=== PATIENT | female | born 1955 | race Caucasian/White ===

== ENCOUNTER 2017-12-06 07:59 | Day surgery (SDC) | payer BC, MEDICARE ==
[~2017-12-06] VITALS: Ht 160 cm; Wt 99.7 kg
[2017-12-06] VITALS (10 sets, daily range): BP systolic 110–135; BP diastolic 56–72
[2017-12-06] MEDS ORDERED: LIDOcaine 1% (10mg/ml) 2ml vial SQ ONE (08:20)
[2017-12-06] MEDS ORDERED: normal saline 1000ml 1,000 ML IV PRN (08:25)
[2017-12-06] MEDS ORDERED: albumin (human) 25% 100 ML IV solution IV PRN (08:25)
[2017-12-06] MEDS ORDERED: SIMV20TA5 PO (11:08)
[2017-12-06] MEDS ORDERED: CALC500T11 PO (11:08)
[2017-12-06] MEDS ORDERED: FURO-149 PO (11:08)
[2017-12-06] MEDS ORDERED: SPIR25TA3 PO (11:08)
[2017-12-06] MEDS ORDERED: LISI40TA4 PO (11:08)
[2017-12-06] MEDS ORDERED: ESCI5TAB PO (11:08)
[2017-12-06] MEDS ORDERED: VITA400C65 PO (11:08)
== END 2017-12-06 11:40 | disposition home or self-care (01) ==
LOC: SSTAY O 07:59
PROVIDERS: ATTEND Radiology Vascular & Interventional Radiology
DX: K70.31 Alcoholic cirrhosis of liver with ascites (principal); E03.9 Hypothyroidism, unspecified; E11.9 Type 2 diabetes mellitus without complications; E78.5 Hyperlipidemia, unspecified; F41.9 Anxiety disorder, unspecified; I10 Essential (primary) hypertension; G47.33 Obstructive sleep apnea (adult) (pediatric); F17.210 Nicotine dependence, cigarettes, uncomplicated; J43.9 Emphysema, unspecified; F32.9 Major depressive disorder, single episode, unspecified; Z72.89 Other problems related to lifestyle; Z90.49 Acquired absence of other specified parts of digestive tract; Z98.84 Bariatric surgery status; Z98.890 Other specified postprocedural states; Z79.899 Other long term (current) drug therapy
CPT/HCPCS: 49083; A6257; J3490; J7030; P9047

== ENCOUNTER 2018-11-06 07:12 | Day surgery (SDC) | payer MEDICARE ==
[~2018-11-06] VITALS: Ht 160 cm; Wt 93.7 kg
[~2018-11-06 07:12] MED LIST: ALBU8.5H8 INH; CALC500T11 PO; ESCI5TAB PO; FURO-149 PO; LEVO100T9 PO; LIDOcaine 1% 30ml preserv. free vial SQ STA; LISI40TA4 PO; SIMV20TA5 PO; SPIR25TA5 PO; VITA400C65 PO
[2018-11-06 07:30] VITALS: BP 124/69
[2018-11-06] MEDS ORDERED: normal saline 1000ml 1,000 ML IV PRN (07:35)
[2018-11-06] MEDS ORDERED: albumin 25% 100mL bottle x 1 IV PRN (07:35)
[2018-11-06] MEDS ORDERED: CHOL50004 PO (07:42)
[2018-11-06] MEDS ORDERED: CALC600T12 PO (07:42)
[2018-11-06] MEDS ORDERED: [UNRECOGNIZED DRUG - CODE] (07:42)
[2018-11-06] MEDS ORDERED: ALPR-149 PO (07:42)
[2018-11-06] MEDS ORDERED: PRAV20TA4 PO (07:42)
[2018-11-06] MEDS ORDERED: ALBU18HF2 INH (07:42)
[2018-11-06] MEDS ORDERED: OXYC-580 PO (07:42)
[2018-11-06 08:30] VITALS: BP 107/59
== END 2018-11-06 08:45 | disposition home or self-care (01) ==
LOC: SSTAY O 07:12
PROVIDERS: ATTEND Radiology Diagnostic Radiology
DX: R14.0 Abdominal distension (gaseous) (principal); Z53.8 Procedure and treatment not carried out for other reasons; K74.60 Unspecified cirrhosis of liver; E03.9 Hypothyroidism, unspecified; I10 Essential (primary) hypertension; E11.9 Type 2 diabetes mellitus without complications; E78.5 Hyperlipidemia, unspecified; F17.200 Nicotine dependence, unspecified, uncomplicated; F41.9 Anxiety disorder, unspecified; Z79.899 Other long term (current) drug therapy; Z88.8 Allergy status to other drugs, medicaments and biological substances; Z90.49 Acquired absence of other specified parts of digestive tract; Z98.890 Other specified postprocedural states; Z98.84 Bariatric surgery status
CPT/HCPCS: 76705; J3490; J7030

== ENCOUNTER 2022-06-16 11:29 | Day surgery (SDC) | payer MEDICARE, OTHER ==
[2022-06-11 16:44] LABS: CLARITY,URINE CLEAR (Clear); COLOR,URINE YELLOW (Yellow); GLUCOSE, URINE >=1000 mg/dl (Neg); KETONES,URINE NEGATIVE (Neg); LEUKOCYTE ESTERASE ,URINE NEGATIVE (Neg); NITRITES, URINE NEGATIVE (Neg); OCCULT BLOOD,URINE TRACE-INTACT (Neg); PROTEIN,URINE NEGATIVE (Neg); UROBILINOGEN,URINE 0.2 E.U/dL (0.2-1.0)
[2022-06-11 16:45] LABS: UA COLLECTION TYPE CLN CATCH MIDSTREAM
[2022-06-11 16:50] LABS: BASOPHILS % (AUTO) 0.1 % (0-1); EOSINOPHILS % (AUTO) 0 % (0-6); LYMPHOCYTES # (AUTO) 1.4 X10'3 (1.1-4.8); LYMPHOCYTES % (AUTO) 10.5 % (21-51); MEAN CORPUSCULAR HGB CONC 32.3 g/dL (33.0-36.5); MEAN CORPUSCULAR VOLUME 74.2 FL (78-98); MEAN PLATELET VOLUME 7.2 FL (7.4-10.4); MONOCYTES # (AUTO) 0.2 X10'3 (0-0.9); MONOCYTES % (AUTO) 1.7 % (2-12); NEUTROPHILS # (AUTO) 11.7 X10'3 (1.8-7.7); NEUTROPHILS % (AUTO) 87.7 % (42-75); PRE OP HEMATOCRIT 38.4 % (35.0-45.0); PRE OP HEMOGLOBIN 12.4 g/dL (12.0-16.0); PRE OP PLATELET COUNT 291 X10'3 (140-440); RED BLOOD COUNT 5.17 X10'6 (4.20-5.60); RED CELL DISTRIBUTION WIDTH 21.1 % (11.5-14.5); SQUAMOUS EPITHELIAL CELL,UR FEW /LPF (FEW)
[2022-06-11 16:51] LABS: BACTERIA,URINE FEW /HPF (Neg); RBC,URINE 0-2 /HPF (0-2); WBC,URINE NONE SEEN /HPF (0-4)
[2022-06-11 16:55] LABS: ALBUMIN 3.2 G/DL (3.4-5.0); ALBUMIN/GLOBULIN RATIO 0.7 (1.1-1.5); ALKALINE PHOSPHATASE 78 IU/L (46-116); BLOOD UREA NITROGEN 28 MG/DL (7-18); BUN/CREATININE RATIO 21.2 (6.6-38.0); CALCIUM 8.4 MG/DL (8.5-10.1); CHLORIDE 96 MMOL/L (99-107); CREATININE 1.32 MG/DL (0.40-0.90); PRE OP ALT 29 U/L (30-65); PRE OP ANION GAP 10 (8-16); PRE OP AST 18 U/L (10-37); PRE OP BILIRUB, TOTAL 0.3 MG/DL (0.0-1.0); PRE OP POTASSIUM 4.1 MMOL/L (3.4-5.1); PRE OP SODIUM 131 MMOL/L (135-145); TOTAL CARBON DIOXIDE 25.1 MMOL/L (24-32); TOTAL PROTEIN 7.5 G/DL (6.4-8.2); eGFR 40 ML/MIN
[2022-06-11 17:05] LABS: PRE OP GLUCOSE 374 MG/DL (70-104)
[2022-06-12 05:17] LABS: ANISOCYTOSIS 3+; MICROCYTOSIS 1+; PLATELET ESTIMATE NORMAL; TARGET CELLS FEW
[~2022-06-16] VITALS: Ht 160 cm; Wt 112.9 kg
[~2022-06-16 11:29] MED LIST changes: +ALBU18HF2 INH; -ALBU8.5H8 INH; +ARIP5TAB14 PO; -CALC500T11 PO; +ESCI20TA39 PO; -ESCI5TAB PO; +GABA300C PO; -LIDOcaine 1% 30ml preserv. free vial SQ STA; -LISI40TA4 PO; +METF-436 PO; +OMEP40CA21 PO; +PRAV20TA4 PO; +PRED20TA PO; -SIMV20TA5 PO; -VITA400C65 PO; +[UNRECOGNIZED DRUG - CODE] PO; +albuterol 2.5 MG/3 ML nebule NEB ONE; +ceFAZolin inj. 2,000 MG in dextrose 5%-water 100 ML IV ONE; +famotidine 20mg tablet PO ONE; +ringers solution, lacted 1,000 ML IV SCH
[2022-06-16 14:26] VITALS: BP 127/82
[2022-06-16 14:39] VITALS: BP 127/82
[2022-06-16] MEDS ORDERED: hydrALAZINE 20mg/ml inj. IV PRN (14:50)
[2022-06-16] MEDS ORDERED: morphine 2 MG/ML inj. syringe IV PRN (14:50)
[2022-06-16] MEDS ORDERED: fentaNYL/PF 50MCG/1 ML 2ML syringe IV PRN ×2 (14:50)
[2022-06-16] MEDS ORDERED: morphine 4 MG/ML inj SYRINge IV PRN (14:50)
[2022-06-16] MEDS ORDERED: labetalol 20mg/4ml (5mg/ml) syringe IV PRN (14:50)
[2022-06-16] MEDS ORDERED: ondansetron/PF 4mg/2ml inj IV PRN (14:50)
[2022-06-16] MEDS ORDERED: ringers solution, lacted 1,000 ML IV SCH (14:50)
[2022-06-16] MEDS ORDERED: BUPIVAcaine/PF 2.5 mg/ml (0.25%) 30ml vial ONE (14:57)
[2022-06-16] MEDS ORDERED: LIDOCAINE 1%/EPI 1:100,000 inj. 10 ML multi-dose vial ONE (14:57)
[2022-06-16] MEDS ORDERED: LIDOcaine 2% (20mg/ml) 5ml vial ONE (14:59)
[2022-06-16] MEDS ORDERED: propofol inj 20 ML IV ONE ×2 (14:59)
[2022-06-16] MEDS ORDERED: fentaNYL/PF 50MCG/1 ML 2ML syringe ONE (15:21)
[2022-06-16] MEDS ORDERED: midazolam 1 mg/ML 2ml injection ONE (15:22)
[2022-06-16] MEDS ORDERED: ondansetron/PF 4mg/2ml inj ONE (15:31)
[2022-06-16] MEDS ORDERED: BUPIVAcaine/PF 2.5mg/ml (0.25%) 10ml vial IJ ONE (15:51)
[2022-06-16 16:25] VITALS: BP 155/83
--- NOTE | 2022-06-16 16:25 | NUR ---
Received from OR via gurney, accompanied by Anesthesiologist and report given by Anesthesiologist. PATIENT WAKING UP, NO S/S OF PAIN, V/S WNL, 20G TO RUE, DRESSING TO LEFT TEMPORAL HEAD AREA CDI
[2022-06-16 16:35] VITALS: BP 135/76
[2022-06-16 16:45] VITALS: BP 131/77
[2022-06-16 16:55] VITALS: BP 129/74
--- NOTE | 2022-06-16 16:55 | NUR ---
PATIENT A&OX4, DENIES PAIN, V/S WNL, 20G TO RUE D/C, DRESSING TO LEFT TEMPORAL HEAD AREA CDI. . I HAVE REVIEWED D/C INSTRUCTIONS WITH PATIENT and they have verbalized understanding patient d/c home with all belongings and family gave transport home.
== END 2022-06-16 16:55 | disposition home or self-care (01) ==
LOC: PAS 11:29
PROVIDERS: ATTEND Surgery
DX: G44.1 Vascular headache, not elsewhere classified (principal); I70.8 Atherosclerosis of other arteries; Z80.8 Family history of malignant neoplasm of other organs or systems; I65.23 Occlusion and stenosis of bilateral carotid arteries; Z82.5 Family history of asthma and other chronic lower respiratory diseases; E11.9 Type 2 diabetes mellitus without complications; E03.9 Hypothyroidism, unspecified; I25.2 Old myocardial infarction; Z87.01 Personal history of pneumonia (recurrent); H53.2 Diplopia; F17.210 Nicotine dependence, cigarettes, uncomplicated
CPT/HCPCS: 36415; 37609; 80053; 81001; 82948; 85025; 93005; 93880; J0690; J2250; J2405; J2704; J3010; J3490; J7060; J7120; Z7506; Z7508; Z7512; 85008; 88305; 88313; A4215; A4618; A6258; A7000

== ENCOUNTER 2022-08-25 16:29 | Inpatient (IN) | payer MEDICARE, OTHER ==
[~2022-08-25] VITALS: Ht 160 cm; Wt 116.0 kg
[~2022-08-25 16:29] MED LIST changes: +ARIP10TA57 PO; -ARIP5TAB14 PO; +ASPI-611 PO; -FURO-149 PO; +FURO80TA3 PO; +METF-1203 PO; -METF-436 PO; +OXYC-658 PO; -PRED20TA PO; +SPIR100T5 PO; -SPIR25TA5 PO; -[UNRECOGNIZED DRUG - CODE] PO; -albuterol 2.5 MG/3 ML nebule NEB ONE; -ceFAZolin inj. 2,000 MG in dextrose 5%-water 100 ML IV ONE; -famotidine 20mg tablet PO ONE; -ringers solution, lacted 1,000 ML IV SCH
--- NOTE | 2022-08-25 17:42 | NUR ---
[facility] CALLED AND STATED THEY ARE RESPONDING.
--- NOTE | 2022-08-25 17:49 | NUR ---
skin care technician at bedside
[2022-08-25 18:45] LABS: BASOPHILS # (AUTO) 0.1 X10'3 (0-0.2); BASOPHILS % (AUTO) 0.8 % (0-1); EOSINOPHILS # (AUTO) 0.3 X10'3 (0-0.9); EOSINOPHILS % (AUTO) 4.3 % (0-6); HEMATOCRIT 33.1 % (35.0-45.0); HEMOGLOBIN 10.3 g/dl (12.0-16.0); LYMPHOCYTES # (AUTO) 1.4 X10'3 (1.1-4.8); LYMPHOCYTES % (AUTO) 19.7 % (21-51); MEAN CORPUSCULAR HEMOGLOBIN 24.8 PG (27.0-31.0); MEAN CORPUSCULAR HGB CONC 31.2 g/dL (33.0-36.5); MEAN CORPUSCULAR VOLUME 79.3 FL (78-98); MEAN PLATELET VOLUME 7.1 FL (7.4-10.4); MONOCYTES # (AUTO) 0.5 X10'3 (0-0.9); MONOCYTES % (AUTO) 6.5 % (2-12); NEUTROPHILS # (AUTO) 4.8 X10'3 (1.8-7.7); NEUTROPHILS % (AUTO) 68.7 % (42-75); PLATELET COUNT 272 X10'3 (140-440); RED BLOOD COUNT 4.17 X10'6 (4.20-5.60); RED CELL DISTRIBUTION WIDTH 21.7 % (11.5-14.5)
[2022-08-25 18:47] LABS: ALANINE AMINOTRANSFERASE 34 U/L (12-78); ALBUMIN 2.6 G/DL (3.4-5.0); ALBUMIN/GLOBULIN RATIO 0.7 (1.1-1.5); ALKALINE PHOSPHATASE 101 IU/L (46-116); ANION GAP 8 (8-16); ASPARTATE AMINO TRANSFERASE 30 U/L (10-37); BILIRUBIN,TOTAL 0.4 MG/DL (0.1-1.0); BLOOD UREA NITROGEN 16 MG/DL (7-18); BUN/CREATININE RATIO 15.2 (6.6-38.0); CALCIUM 8.5 MG/DL (8.5-10.1); CHLORIDE 107 MMOL/L (99-107); CREATININE 1.05 MG/DL (0.40-0.90); GLUCOSE 117 MG/DL (70-104); POTASSIUM 4.3 MMOL/L (3.5-5.1); SODIUM 136 MMOL/L (135-145); TOTAL CARBON DIOXIDE 20.7 MMOL/L (24-32); TOTAL PROTEIN 6.2 G/DL (6.4-8.2); eGFR 52 ML/MIN
[2022-08-25] MEDS ORDERED: HYDROcodone/acetaminophen 10/325mg tab PO ONE (19:05)
[2022-08-25 19:25] LABS: ANISOCYTOSIS 3+; MICROCYTOSIS 1+; PLATELET ESTIMATE NORMAL
[2022-08-25 19:26] LABS: ELLIPTOCYTES FEW; POLYCHROMASIA FEW; TEAR DROP CELLS FEW
[2022-08-25] MEDS ORDERED: temazepam 15mg capsule PO PRN (21:00)
[2022-08-25] MEDS ORDERED: magnesium 4gm in 100ml NS 100 ML IV PRN (21:15)
[2022-08-25] MEDS ORDERED: glucagon, human recombinant 1mg kit SUBCUT PRN (21:15)
[2022-08-25] MEDS ORDERED: potassium Cl 20 mEq SR tablet PO PRN ×2 (21:15)
[2022-08-25] MEDS ORDERED: insulin Lispro (HumaLOG) vial - multi-dose SQ SCH (21:15)
[2022-08-25] MEDS ORDERED: DEXTROSE 15 GM of carb/4 tabs (each vial/BOTTLE has 4 tablets) PO PRN ×2 (21:15)
[2022-08-25] MEDS ORDERED: acetaminophen 325mg tablet PO PRN ×2 (21:15)
[2022-08-25] MEDS ORDERED: morphine 2 MG/ML inj. syringe IV PRN (21:15)
[2022-08-25] MEDS ORDERED: dextrose 50%-water 50ml dispensing syringe IV PRN ×2 (21:15)
[2022-08-25] MEDS ORDERED: potassium Cl 40MEQ/1/2NS 520ml 520 ML IV PRN (21:15)
[2022-08-25] MEDS ORDERED: MESSAGE TO PHARMACY PO ONE (21:15)
[2022-08-25] MEDS ORDERED: magnesium Cl slow-release 64mg tablet PO PRN (21:15)
[2022-08-25] MEDS ORDERED: ondansetron/PF 4mg/2ml inj IV PRN (21:15)
[2022-08-25] MEDS: doxycycline inj 100 MG in normal saline 100ml IV soln 100 ML IV SCH (22:58)
[2022-08-25] MEDS: normal saline 1000ml 1,000 ML IV SCH (23:01)
[2022-08-26] MEDS: HYDROcodone/acetaminophen 5mg/325mg tablet PO PRN ×4 (01:15→20:15)
--- NOTE | 2022-08-26 01:48 | NUR ---
Right inner thigh redressed, wet to dry 4x4's with ABD drsg. Foam tape used to secure the dressing. Pictures taken for chart/wound care.
--- NOTE | 2022-08-26 02:09 | NUR ---
Patient placed on hospital for comfort while waiting for inpatient room assignment.
[2022-08-26 03:35] LABS: BASOPHILS % (AUTO) 0.7 % (0-1); EOSINOPHILS # (AUTO) 0.3 X10'3 (0-0.9); LYMPHOCYTES # (AUTO) 1.8 X10'3 (1.1-4.8); LYMPHOCYTES % (AUTO) 26.2 % (21-51); MEAN CORPUSCULAR HEMOGLOBIN 25.5 PG (27.0-31.0); MEAN CORPUSCULAR HGB CONC 32.3 g/dL (33.0-36.5); MONOCYTES # (AUTO) 0.5 X10'3 (0-0.9); MONOCYTES % (AUTO) 7.4 % (2-12); NEUTROPHILS # (AUTO) 4.2 X10'3 (1.8-7.7); NEUTROPHILS % (AUTO) 60.7 % (42-75); PLATELET COUNT 258 X10'3 (140-440); RED BLOOD COUNT 3.93 X10'6 (4.20-5.60); RED CELL DISTRIBUTION WIDTH 21.9 % (11.5-14.5); WHITE BLOOD COUNT 6.9 X10'3 (4.5-11.0)
[2022-08-26 03:57] LABS: ALANINE AMINOTRANSFERASE 31 U/L (12-78); ALBUMIN 2.5 G/DL (3.4-5.0); ALBUMIN/GLOBULIN RATIO 0.7 (1.1-1.5); ALKALINE PHOSPHATASE 98 IU/L (46-116); ANION GAP 9 (8-16); ASPARTATE AMINO TRANSFERASE 29 U/L (10-37); BILIRUBIN,TOTAL 0.4 MG/DL (0.1-1.0); BLOOD UREA NITROGEN 18 MG/DL (7-18); BUN/CREATININE RATIO 17.8 (6.6-38.0); CALCIUM 8.3 MG/DL (8.5-10.1); CHLORIDE 107 MMOL/L (99-107); CREATININE 1.01 MG/DL (0.40-0.90); GLUCOSE 86 MG/DL (70-104); POTASSIUM 4.1 MMOL/L (3.5-5.1); SODIUM 137 MMOL/L (135-145); TOTAL CARBON DIOXIDE 20.9 MMOL/L (24-32); eGFR 54 ML/MIN
[2022-08-26] MEDS ORDERED: HYDR-3964 PO (04:01)
--- NOTE | 2022-08-26 07:29 | NUR ---
Received patient to room 353 via bed. Patient alert and oriented. Oriented patient to room and call light. Call light placed within patient's reach. Patient ambulating to bathroom with cane. Will continue to monitor.
[2022-08-26 07:32] VITALS: BP 117/61
[2022-08-26] MEDS: doxycycline inj 100 MG in normal saline 100ml IV soln 100 ML IV SCH ×2 (07:40→20:12)
[2022-08-26] MEDS: aspirin 81mg, enteric-coated 1 TAB TABLET.DR PO SCH (07:40)
[2022-08-26] MEDS: levoTHYROXINE 100mcg tablet PO SCH (07:40)
[2022-08-26] MEDS: ARIPIPRAZOLE 10 MG TABLET PO SCH (07:41)
[2022-08-26] MEDS: ESCITALOPRAM OXALATE 5 MG TABLET PO SCH (07:41)
[2022-08-26] MEDS: gabapentin 300mg capsule PO SCH ×3 (07:41→20:12)
[2022-08-26] MEDS: furosemide 20MG tablet PO SCH ×2 (07:41→20:12)
[2022-08-26] MEDS: pravastatin 40mg tablet PO SCH (07:41)
[2022-08-26] MEDS: pantoprazole 40mg Tablet.DR PO SCH (07:41)
[2022-08-26] MEDS: heparin, porcine 5000 units/ml vial SQ SCH ×2 (07:42→20:12)
[2022-08-26] MEDS: normal saline 1000ml 1,000 ML IV SCH (07:47)
[2022-08-26] MEDS ORDERED: albuterol 2.5 MG/3 ML nebule NEB PRN (08:00)
[2022-08-26 11:43] VITALS: BP 116/64
[2022-08-26 18:00] VITALS: BP 122/56
--- NOTE | 2022-08-26 18:09 | NUR ---
Problems reprioritized. Patient report given, questions answered & plan of care reviewed with CHANO Regalado.
--- NOTE | 2022-08-26 18:10 | NUR ---
Patient in room [facility]. I have received report from CHANO Kim and had the opportunity to ask questions and assume patient care.
[2022-08-26] MEDS: insulin glargine (Lantus) pen - multi-dose SQ SCH (21:00)
[2022-08-26 22:00] VITALS: BP 115/64
[2022-08-26] MEDS: morphine 2 MG/ML inj. syringe IV PRN (22:23)
[2022-08-27] MEDS: HYDROcodone/acetaminophen 5mg/325mg tablet PO PRN ×3 (02:29→19:38)
[2022-08-27 06:00] VITALS: BP 116/69
[2022-08-27 06:36] LABS: BASOPHILS # (AUTO) 0.1 X10'3 (0-0.2); BASOPHILS % (AUTO) 0.8 % (0-1); EOSINOPHILS # (AUTO) 0.4 X10'3 (0-0.9); EOSINOPHILS % (AUTO) 5.5 % (0-6); HEMATOCRIT 35.8 % (35.0-45.0); HEMOGLOBIN 11.5 g/dl (12.0-16.0); LYMPHOCYTES # (AUTO) 2.1 X10'3 (1.1-4.8); LYMPHOCYTES % (AUTO) 31.6 % (21-51); MEAN CORPUSCULAR HEMOGLOBIN 25.5 PG (27.0-31.0); MEAN CORPUSCULAR HGB CONC 32.1 g/dL (33.0-36.5); MEAN CORPUSCULAR VOLUME 79.3 FL (78-98); MEAN PLATELET VOLUME 7.1 FL (7.4-10.4); MONOCYTES # (AUTO) 0.6 X10'3 (0-0.9); MONOCYTES % (AUTO) 8.2 % (2-12); NEUTROPHILS # (AUTO) 3.7 X10'3 (1.8-7.7); NEUTROPHILS % (AUTO) 53.9 % (42-75); PLATELET COUNT 272 X10'3 (140-440); RED BLOOD COUNT 4.51 X10'6 (4.20-5.60); RED CELL DISTRIBUTION WIDTH 21.8 % (11.5-14.5); WHITE BLOOD COUNT 6.8 X10'3 (4.5-11.0)
--- NOTE | 2022-08-27 06:36 | NUR ---
Patient in room [facility]. I have received report from Sabine and had the opportunity to ask questions and assume patient care.
[2022-08-27 06:44] LABS: ALANINE AMINOTRANSFERASE 33 U/L (12-78); ALBUMIN 2.9 G/DL (3.4-5.0); ALBUMIN/GLOBULIN RATIO 0.7 (1.1-1.5); ALKALINE PHOSPHATASE 118 IU/L (46-116); ANION GAP 9 (8-16); ASPARTATE AMINO TRANSFERASE 43 U/L (10-37); BILIRUBIN,TOTAL 0.6 MG/DL (0.1-1.0); BLOOD UREA NITROGEN 26 MG/DL (7-18); BUN/CREATININE RATIO 19.3 (6.6-38.0); CALCIUM 8.9 MG/DL (8.5-10.1); CHLORIDE 101 MMOL/L (99-107); CREATININE 1.35 MG/DL (0.40-0.90); GLUCOSE 105 MG/DL (70-104); POTASSIUM 3.5 MMOL/L (3.5-5.1); SODIUM 134 MMOL/L (135-145); TOTAL CARBON DIOXIDE 24.5 MMOL/L (24-32); TOTAL PROTEIN 6.9 G/DL (6.4-8.2); eGFR 39 ML/MIN
[2022-08-27 07:23] LABS: ANISOCYTOSIS 3+; MICROCYTOSIS 1+; PLATELET ESTIMATE NORMAL
[2022-08-27 07:24] LABS: ELLIPTOCYTES FEW; SCHISTOCYTES FEW
[2022-08-27] MEDS: doxycycline inj 100 MG in normal saline 100ml IV soln 100 ML IV SCH (08:14)
[2022-08-27] MEDS: ARIPIPRAZOLE 10 MG TABLET PO SCH (08:15)
[2022-08-27] MEDS: furosemide 20MG tablet PO SCH ×2 (08:15→19:39)
[2022-08-27] MEDS: ESCITALOPRAM OXALATE 5 MG TABLET PO SCH (08:15)
[2022-08-27] MEDS: pantoprazole 40mg Tablet.DR PO SCH (08:15)
[2022-08-27] MEDS: gabapentin 300mg capsule PO SCH ×3 (08:15→19:38)
[2022-08-27] MEDS: aspirin 81mg, enteric-coated 1 TAB TABLET.DR PO SCH (08:15)
[2022-08-27] MEDS: pravastatin 40mg tablet PO SCH (08:15)
[2022-08-27] MEDS: heparin, porcine 5000 units/ml vial SQ SCH ×2 (08:16→19:39)
[2022-08-27] MEDS: levoTHYROXINE 100mcg tablet PO SCH (08:16)
[2022-08-27 10:00] VITALS: BP 126/85
--- NOTE | 2022-08-27 13:37 | NUR ---
DM consult: Per EMR pt with T2DM, well controlled with A1c 7.1% which is down from 8.0% 03/30/22 per EMR. Written DM education with RD contact information placed in patient's chart. Will remain available. Addendum: 08/27/22 at [address] Amended: Links added.
--- NOTE | 2022-08-27 14:35 | NUR ---
PRESSURE ULCER EDUCATION: DEFINITION: A pressure ulcer is an area of skin that breaks down when you stay in one position too long. The constant pressure against the skin reduces the blood flow to that area and the affected tissue dies. CAUSES: "Being bedridden or in a wheelchair "Fragile skin "Having a chronic condition, such as diabetes or vascular disease "Inability to move certain parts of your body without assistance "Older age "Incontinence of urine or stool SYMPTOMS: "A reddened area that DOES NOT turn white when pressed on - this can be the beginning of a pressure ulcer "A blister, deep sore or a crater - these can be advanced pressure ulcers FIRST AID: "Relieve the pressure on this area "Keep the area clean and dry "Call your primary doctor if you see any of the above symptoms "DO NOT massage the area "DO NOT use a donut shaped or ring shaped pillow- these actually interfere with the blood flow and cause complications PREVENTION: "Check for pressure ulcers everyday "Change position at least every two hours to relieve pressure "Use items that help relieve pressure- pillows, sheepskin, foam padding, and powders. "Keep skin clean and dry "Eat healthy well balanced meals "Exercise daily IF YOU SEE ANY OF THESE SYMPTOMS WHILE IN THE HOSPITAL - TELL YOUR NURSE IMMEDIATELY. IF YOU SEE ANY OF THESE SYMPTOMS WHILE AT HOME OR HAVE ANY QUESTIONS OR CONCERNS ABOUT PRESSURE ULCERS - CALL YOUR PRIMARY DOCTOR IMMEDIATELY. Addendum: 08/27/22 at 1436 by Joyce Larose RN Amended: Links added.
[2022-08-27] MEDS: cefazolin/dext.iso 2gm/100ml 100 ML IV SCH (16:29)
[2022-08-27 18:00] VITALS: BP 103/56
--- NOTE | 2022-08-27 18:22 | NUR ---
Problems reprioritized. Patient report given, questions answered & plan of care reviewed with Prudence.
[2022-08-27] MEDS: insulin glargine (Lantus) pen - multi-dose SQ SCH (21:00)
[2022-08-27] MEDS: nystatin 15 GM powder TP SCH (21:15)
[2022-08-27 22:54] VITALS: BP 105/58
[2022-08-28] MEDS: cefazolin/dext.iso 2gm/100ml 100 ML IV SCH ×2 (00:32→08:17)
[2022-08-28] MEDS: morphine 2 MG/ML inj. syringe IV PRN (01:54)
[2022-08-28 05:00] VITALS: BP 110/70
--- NOTE | 2022-08-28 06:27 | NUR ---
Problems reprioritized. Patient report given, questions answered & plan of care reviewed with CHRISTINE MADDEN.
[2022-08-28 06:45] LABS: BASOPHILS # (AUTO) 0.1 X10'3 (0-0.2); BASOPHILS % (AUTO) 0.7 % (0-1); EOSINOPHILS # (AUTO) 0.4 X10'3 (0-0.9); EOSINOPHILS % (AUTO) 5.1 % (0-6); HEMATOCRIT 34.3 % (35.0-45.0); HEMOGLOBIN 11.3 g/dl (12.0-16.0); LYMPHOCYTES # (AUTO) 1.9 X10'3 (1.1-4.8); LYMPHOCYTES % (AUTO) 27.3 % (21-51); MEAN CORPUSCULAR HEMOGLOBIN 25.7 PG (27.0-31.0); MEAN CORPUSCULAR HGB CONC 32.9 g/dL (33.0-36.5); MEAN CORPUSCULAR VOLUME 78.1 FL (78-98); MEAN PLATELET VOLUME 7.4 FL (7.4-10.4); MONOCYTES # (AUTO) 0.6 X10'3 (0-0.9); MONOCYTES % (AUTO) 8.3 % (2-12); NEUTROPHILS # (AUTO) 4.2 X10'3 (1.8-7.7); NEUTROPHILS % (AUTO) 58.6 % (42-75); PLATELET COUNT 270 X10'3 (140-440); RED BLOOD COUNT 4.39 X10'6 (4.20-5.60); RED CELL DISTRIBUTION WIDTH 21.3 % (11.5-14.5); WHITE BLOOD COUNT 7.1 X10'3 (4.5-11.0)
[2022-08-28 07:01] LABS: ALANINE AMINOTRANSFERASE 38 U/L (12-78); ALBUMIN 2.7 G/DL (3.4-5.0); ALBUMIN/GLOBULIN RATIO 0.7 (1.1-1.5); ALKALINE PHOSPHATASE 122 IU/L (46-116); ANION GAP 9 (8-16); ASPARTATE AMINO TRANSFERASE 34 U/L (10-37); BILIRUBIN,TOTAL 0.4 MG/DL (0.1-1.0); BLOOD UREA NITROGEN 33 MG/DL (7-18); CALCIUM 8.3 MG/DL (8.5-10.1); CHLORIDE 101 MMOL/L (99-107); CREATININE 1.27 MG/DL (0.40-0.90); GLUCOSE 101 MG/DL (70-104); POTASSIUM 3.1 MMOL/L (3.5-5.1); SODIUM 137 MMOL/L (135-145); TOTAL CARBON DIOXIDE 26.6 MMOL/L (24-32); TOTAL PROTEIN 6.6 G/DL (6.4-8.2); eGFR 42 ML/MIN
[2022-08-28 08:12] LABS: HBSAG SCREEN Negative (Negative); HEP B CORE AB, TOT Negative (Negative)
[2022-08-28] MEDS: ESCITALOPRAM OXALATE 5 MG TABLET PO SCH (08:14)
[2022-08-28] MEDS: aspirin 81mg, enteric-coated 1 TAB TABLET.DR PO SCH (08:14)
[2022-08-28] MEDS: pravastatin 40mg tablet PO SCH (08:14)
[2022-08-28] MEDS: ARIPIPRAZOLE 10 MG TABLET PO SCH (08:15)
[2022-08-28] MEDS: levoTHYROXINE 100mcg tablet PO SCH (08:15)
[2022-08-28] MEDS: pantoprazole 40mg Tablet.DR PO SCH (08:16)
[2022-08-28] MEDS: furosemide 20MG tablet PO SCH (08:16)
[2022-08-28] MEDS: gabapentin 300mg capsule PO SCH (08:17)
[2022-08-28] MEDS: heparin, porcine 5000 units/ml vial SQ SCH (08:20)
[2022-08-28] MEDS: nystatin 15 GM powder TP SCH (08:29)
[2022-08-28 10:00] VITALS: BP 114/43
[2022-08-28] MEDS: HYDROcodone/acetaminophen 5mg/325mg tablet PO PRN (10:55)
[2022-08-28] MEDS ORDERED: AMOX-580 PO (11:55)
[2022-08-28] MEDS ORDERED: HYDR-3965 PO (11:55)
--- NOTE | 2022-08-28 13:04 | NUR ---
Pt discharged home with , IV taken out, driving. Tele dc'd . Pt appears appropriate for discharge. No home meds. 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
== END 2022-08-28 12:43 | disposition home health service (06) | DRG 602 ==
LOC: ER 16:30 → ED HOLD 21:20 → SUR 3N 08-26 07:00
PROVIDERS: ADMIT Internal Medicine; ATTEND Internal Medicine
DX: L03.115 Cellulitis of right lower limb (principal); N17.0 Acute kidney failure with tubular necrosis; I13.0 Hypertensive heart and chronic kidney disease with heart failure and stage 1 through stage 4 chronic kidney disease, or unspecified chronic kidney disease; I50.32 Chronic diastolic (congestive) heart failure; Z68.42 Body mass index [BMI] 45.0-49.9, adult; D63.8 Anemia in other chronic diseases classified elsewhere; E03.9 Hypothyroidism, unspecified; E11.22 Type 2 diabetes mellitus with diabetic chronic kidney disease; E11.42 Type 2 diabetes mellitus with diabetic polyneuropathy; E11.65 Type 2 diabetes mellitus with hyperglycemia; F32.A Depression, unspecified; S30.92XA Unspecified superficial injury of abdominal wall, initial encounter; X58.XXXA Exposure to other specified factors, initial encounter; K21.9 Gastro-esophageal reflux disease without esophagitis; F17.200 Nicotine dependence, unspecified, uncomplicated; E66.01 Morbid (severe) obesity due to excess calories; E78.5 Hyperlipidemia, unspecified; J44.9 Chronic obstructive pulmonary disease, unspecified; N18.30 Chronic kidney disease, stage 3 unspecified; Z79.82 Long term (current) use of aspirin; Z79.84 Long term (current) use of oral hypoglycemic drugs; Z79.899 Other long term (current) drug therapy; Z80.3 Family history of malignant neoplasm of breast; Z83.3 Family history of diabetes mellitus; Z86.73 Personal history of transient ischemic attack (TIA), and cerebral infarction without residual deficits; Z90.710 Acquired absence of both cervix and uterus; Z98.84 Bariatric surgery status; Z88.8 Allergy status to other drugs, medicaments and biological substances; Y93.89 Activity, other specified; Y92.89 Other specified places as the place of occurrence of the external cause; Y99.8 Other external cause status
CPT/HCPCS: 36415; 80053; 82948; 83036; 83605; 83880; 84145; 85008; 85025; 86704; 86705; 86706; 87040; 87081; 87340; 93971; 94760; 97161; 97530; 99285; A6212; A6213; A6223; A6253; A6258; A6449; G0378; J0690; J1644; J1815; J2270; J3490; J7030